=== PATIENT | male | born 1940 | race Caucasian/White ===

== ENCOUNTER 2020-11-27 03:56 | Inpatient (IN) | payer OTHER, MEDICARE ==
[~2020-11-27] VITALS: Ht 177.8 cm; Wt 70.7 kg
[~2020-11-27 03:56] MED LIST: CEFTRIAXONE1 GM IM
[2020-11-27 04:18] LABS: BASOPHILS ABSOLUTE AUTO 0.04 K/mm3 (0.00-0.23); BASOPHILS PERCENT AUTO 0 % (0-2); EOSINOPHILS PERCENT AUTO 0 % (0-6); Hematocrit 34.3 % (37.0-53.0); Hemoglobin 12.2 g/dL (13.5-17.5); IMMATURE GRAN ABSOLUTE AUTO 0.48 K/mm3 (0.00-0.10); IMMATURE GRAN PERCENT AUTO 2 % (0-1); LYMPHOCYTES PERCENT AUTO 2 % (21-46); MONOCYTES PERCENT AUTO 2 % (4-13); Mean Corpuscular HGB 32.6 pg (26.0-34.0); Mean Corpuscular HGB Conc 35.6 g/dL (31.5-36.5); Mean Corpuscular Volume 92 fL (80-100); Mean Platelet Volume 8.9 fL (9.1-12.4); NEUTROPHILS ABSOLUTE AUTO 18.78 K/mm3 (1.96-9.15); NEUTROPHILS PERCENT AUTO 94 % (41-73); NRBC ABSOLUTE 0.02 K/mm3 (0.00-0.02); NRBC Auto 0.1 /100 WBC (0.0-0.2); Platelet Count 117 K/mm3 (150-400); RDW Coefficient Variation 13.8 % (11.7-14.2); RDW Standard Deviation 45.6 fL (35.1-46.3); Red Blood Cell Count 3.74 M/mm3 (4.30-5.90)
[2020-11-27 04:19] LABS: Source, Urine Catheter
[2020-11-27 04:21] LABS: Appearance, Urine Hazy (Clear); Bilirubin, Urine Neg (Neg); Blood, Urine 5+ (Neg); Color, Urine Yellow (P-Yellow); Glucose Qualitative, Urine Neg (Neg); Ketones, Urine Neg (Neg); Leukocyte Esterase, Urine 3+ (Neg); Nitrite, Urine Neg (Neg); Protein, Urine 2+ (Neg); Urobilinogen, Urine NORM (Normal)
[2020-11-27 04:28] LABS: White Blood Cells, Urine TNTC /hpf (0-5)
[2020-11-27 04:29] LABS: Bacteria Many /hpf; Squamous Epithelial Cells Not Seen /hpf (Few)
[2020-11-27 04:36] LABS: BAND PERCENT MAN 18 % (0-8); BASOPHILS PERCENT MAN 0 % (0-2); EOSINOPHILS ABSOLUTE MAN 0.19 K/mm3 (0.00-0.68); EOSINOPHILS PERCENT MAN 1 % (0-6); LYMPHOCYTES ABSOLUTE MAN 0.39 K/mm3 (0.84-5.20); LYMPHOCYTES PERCENT MAN 2 % (21-46); METAMYELOCYTE ABSOLUTE MAN 1.39 K/mm3 (0.00-0.00); METAMYELOCYTE PERCENT MAN 7 % (0-0); MONOCYTES ABSOLUTE MAN 0.79 K/mm3 (0.16-1.47); MONOCYTES PERCENT MAN 4 % (4-13); NEUTROPHILS ABSOLUTE MAN 17.11 K/mm3 (1.96-9.15); SEG NEUTROPHILS PERCENT MAN 68 % (41-73); TOTAL CELLS COUNTED 100
[2020-11-27 04:39] LABS: Albumin, Blood 2.3 g/dL (3.4-5.0); Albumin/Globulin Ratio 0.7 (0.8-1.8); Bilirubin, Total 0.6 mg/dL (0.1-1.0); Bun/Creatinine Ratio 10.6 (12.0-20.0); Calcium, Blood 8.5 mg/dL (8.5-10.1); Creatinine, Blood 2.54 mg/dL (0.60-1.20); Globulin, Blood 3.1 g/dL (2.2-4.0); Potassium, Blood 4.3 mmol/L (3.5-5.5); Total Protein, Blood 5.4 g/dL (6.4-8.2); Troponin I 0.03 ng/mL (0.000-0.040)
[2020-11-27 05:02] LABS: Influenza A, PCR NEGATIVE (NEGATIVE); Influenza B, PCR NEGATIVE (NEGATIVE); Resp Syncytial Virus, PCR NEGATIVE (NEGATIVE); SARS-Cov-2 (COVID-19) PCR, MMC POSITIVE (NEGATIVE)
--- NOTE | 2020-11-27 06:52 | NUR ---
ADMIT PT ARRIVES TO ICU 9 VIA [facility] ATTENDS FULL OF STOOL. PT ANSWERS SIMPLE QUESTIONS BUT IS ALTERED. DR MESSINA CAME BEDSIDE FOR CENTRAL LINE PLACEMENT. INDWELLING YOUNG DC AND TEMP PROBE YOUNG. SCANT ZAFAR URINE RETURNED. SKIN DRY AND PALE. MULT PERIPHERAL IVS. PT CURRENTLY ON LEVO @ 12MCG/MIN UNTIL CENTRAL LINE CONFIRMED. ALB AND REMDES GIVEN. NS INF AT 125ML/HR. NO OBVIOUS WOUNDS. PT HYPOTENSIVE, AFIB ON MONITOR. ON 4L O2 PER CANNULA. PT CAME TO ER TODAY FROM [facility], STAFF AT FACILITY CONCERNED ABOUT HIS BP AND FEVER. WILL REPORT TO ONCOMING SHIFT.
[2020-11-27 07:01] LABS: Source, Urine Catheter
[2020-11-27 07:11] LABS: Blood, Urine 5+ (Neg); Glucose Qualitative, Urine Neg (Neg); Ketones, Urine Neg (Neg); Leukocyte Esterase, Urine 3+ (Neg); Nitrite, Urine Pos (Neg); Protein, Urine 3+ (Neg); Urobilinogen, Urine 1+ (Normal)
[2020-11-27 07:18] LABS: Appearance, Urine Cloudy (Clear); Bilirubin, Urine 1+ (Neg); Color, Urine Amber (P-Yellow)
[2020-11-27 07:21] LABS: Red Blood Cells, Urine TNTC /hpf (0-2); White Blood Cells, Urine 25-50 /hpf (0-5)
[2020-11-27 07:22] LABS: Bacteria Many /hpf; Squamous Epithelial Cells Rare /hpf (Few)
--- NOTE | 2020-11-27 07:59 | NUR ---
PT RECEIVED FROM NUBIA NARAYANAN. PT MINIMALLY RESPONSIVE, BP DROPPING, LEVOPHED MOVED TO CENTRAL LINE AND INCREASED INCREMENTALLY TO 20MCG. DR. MANCINI IN, ORDER FOR VASOPRESSIN. PT NO LONGER ANSWERING TO VOICE, SONOROUS RESPIRATIONS. PT WITH CLEAR LUNG SOUNDS ON THE LEFT, DIMINISHED ON THE RIGHT. DOPPLAR PULSES TO THE POSTERIOR TIBIALIS, UNABLE TO GET DORSAL PEDIALIS. PT STATES PAIN IN ABDOMEN. BOUNDING HEART TONES IN THE RUQ, QUIET REMAINDER OF ABDOMEN. YOUNG WITH DARK YELLOW RETURN, WITH SEDIMENT. ORALPHARYNX DRY.SKIN FLAKY. INCONTINENT OF DARK BROWN SEMI-FORMED STOOL, COCCYX RED, COVERED WITH CLOVER FOAM PAD.
--- NOTE | 2020-11-27 11:15 | NUR ---
PT IS NOW RESPONDING, ALERT AND ORIENTED. ORAL CARE DONE, PT ASSISTED WITH TURNING AND REPOSITION TO THE LEFT. HE IS ANSWERING ALL QUESTIONS APPROPRIATELY. HE UNDERSTANDS WHERE HE IS AND WHY HE IS HERE. HE ALSO UNDERSTANDS THAT HE TESTED POSITIVE FOR COVID HERE SO HE IS IN ISOLATION. BLOOD PRESSURE IMPROVED, VASOPRESSIN ON SB AND LEVO DOWN TO 15MCG/MIN. OXYGEN ON @ 2L/NC.
[2020-11-27] MEDS ORDERED: Amiodarone HCl200 MG PO (11:22)
[2020-11-27] MEDS ORDERED: FERSU300 PO (11:23)
[2020-11-27] MEDS ORDERED: TAMS.4ER PO (11:24)
[2020-11-27] MEDS ORDERED: MELA3 PO (11:25)
[2020-11-27] MEDS ORDERED: SENNA LAXATIVE8.6 MG PO (11:26)
[2020-11-27] MEDS ORDERED: SERT25 PO (11:27)
[2020-11-27] MEDS ORDERED: ATROVENT HFA12.9 GM INH (11:28)
[2020-11-27] MEDS ORDERED: ELIQUIS5 MG PO (11:28)
[2020-11-27] MEDS ORDERED: METO25ER PO (11:29)
[2020-11-27] MEDS ORDERED: HYDR1TAB94 PO (11:31)
[2020-11-27] MEDS ORDERED: ALBU90OI6 INH (11:32)
[2020-11-27] MEDS ORDERED: MIRALAX17 GM PO (11:32)
[2020-11-27] MEDS ORDERED: Pyridium100 MG PO (11:33)
[2020-11-27] MEDS ORDERED: ACET325 PO (11:34)
--- NOTE | 2020-11-27 13:52 | NUR ---
PT CONTINUES TO SLEEP WHILE RN OUT OF ROOM. PT AWAKENS WITH TOUCH AND VOICE, STATES HE DOESN'T SLEEP WELL. UNDERSTOOD THAT BOTH HIS SON AND DAUGHTER HAVE CALLED TO SPEAK WITH HIM. HE AGREES TO WAIT TO SPEAK WITH THEM. LEVO @ 9MCG/ VASOPRESSIN ON SB.
--- NOTE | 2020-11-27 15:50 | NUR ---
SHANA IS MUCH MORE ALERT AND ORIENTED THAN THIS AM, HE IS ABLE TO CARRY ON A CONVERSATION WITH ME. HE WAS TELLING ME ABOUT HIS TIME WORKING FOR THE [employer] IN [facility] AND HOW MUCH HE DOESN'T LIKE THAT CITY. WE DID FIND OUT FROM THE FACILITY,[facility],THAT HE RECEIVED THE 1ST DOSE OF THE VACCINE ON September, HE THEN TESTED + FOR COVID-19 ON . HE IS TO START OVER WHEN HE GETS BACK. SHANA ALSO IS TELLING ME THAT HIS NECK IS BOTHERING HIM REALLY BADLY, THAT HE WAS GETTING PAIN MEDS 2X/DAY AT THE FACILITY. WE WERE DISCUSSING IT, THE ORDERS CAME THROUGH FOR HIS "HOME" MEDICATIONS AND I GAVE HIM ONE OF HIS NORCO TABLETS. HE IS CURRENTLY COUGHING AND PRODUCING THICK WHITE SPUTUM RETURN. HE WILL NOT SWALLOW IT WHEN I AM IN THE ROOM WITH HIM BUT WILL SWALLOW IT WHEN I AM NOT.
--- NOTE | 2020-11-27 17:36 | NUR ---
JOHN HAS MAINTAINED HIS BLOOD PRESSURE FOR THE LAST HOUR WITH HIS PRESSORS ON STANDBY. HE CONTINUES TO REST. HE HAD SAID HE "JUST DOESN'T FEEL WELL" WHEN WE WERE CHATTING. HE HAS HAD 2L OF LACTATED RINGERS, HIS NS @125ML HAS FINISHED. HE HAD 750ML OUT OF HIS YOUNG. HE TOOK WATER PO AND HIS PAIN PILL FOR HIS NECK. HE HAS TOLERATED ORAL CARE AND SUCTIONING WHEN HE COUGHS, PRODUCTIVE OF WHITE THICK RETURN. PT HAS BEEN TURNED WITH PILLOWS ASSISTING HIS POSITIONING. IV'S PERIPHERAL X4, SALINE LOCK. CENTRAL LINE REMAINS INTACT AND PATENT FROM THIS MORNING.
--- NOTE | 2020-11-27 19:00 | NUR ---
ASSUMED CARE ASSUMED CARE OF PATIENT. RESTING QUIETLY WHEN UNDISTURBED. ROUSES EASILY TO VERBAL STIMULI. ORIENTED AND COOPERATIVE. SLOW VERBAL RESPONSE NOTED. VOICE IS WEAK. MOVES ALL EXTREMITIES WEAKLY. FOLLOWS COMMANDS. CONTINUES WITH C/O NECK PAIN- REPOSITIONED FOR COMFORT. 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 BP STABLE- LEVOPHED AND VASOPRESSIN REMAIN OFF. YOUNG PATENT AND DRAINING DARK YELLOW URINE. AFEBRILE. SEE ADMIT ASSESSMEMT FOR FULL ASSESSMENT.
[2020-11-28 04:11] LABS: BASOPHILS PERCENT AUTO 0 % (0-2); Hematocrit 27.9 % (37.0-53.0); Hemoglobin 9.9 g/dL (13.5-17.5); LYMPHOCYTES ABSOLUTE AUTO 0.73 K/mm3 (0.84-5.20); LYMPHOCYTES PERCENT AUTO 2 % (21-46); MONOCYTES ABSOLUTE AUTO 1.03 K/mm3 (0.16-1.47); MONOCYTES PERCENT AUTO 3 % (4-13); Mean Corpuscular HGB 31.9 pg (26.0-34.0); Mean Corpuscular HGB Conc 35.5 g/dL (31.5-36.5); Mean Corpuscular Volume 90 fL (80-100); Mean Platelet Volume 9.3 fL (9.1-12.4); Platelet Count 94 K/mm3 (150-400); RDW Coefficient Variation 14.1 % (11.7-14.2); RDW Standard Deviation 45.8 fL (35.1-46.3); White Blood Cell Count 31.93 K/mm3 (4.00-11.30)
[2020-11-28 04:17] LABS: EOSINOPHILS PERCENT AUTO 0 % (0-6); IMMATURE GRAN ABSOLUTE AUTO 4.35 K/mm3 (0.00-0.10); IMMATURE GRAN PERCENT AUTO 14 % (0-1); NEUTROPHILS ABSOLUTE AUTO 25.72 K/mm3 (1.96-9.15); NEUTROPHILS PERCENT AUTO 81 % (41-73)
[2020-11-28 04:28] LABS: Alanine Aminotransfer (ALT/SGP 25 U/L (12-78); Albumin, Blood 2.3 g/dL (3.4-5.0); Albumin/Globulin Ratio 0.8 (0.8-1.8); Alk Phos 69 U/L (50-136); Anion Gap 7 mmol/L (6-16); Aspartate Aminotrans (AST/SGOT 33 U/L (12-37); Bilirubin, Total 0.4 mg/dL (0.1-1.0); Blood Urea Nitrogen 22 mg/dL (8-24); Bun/Creatinine Ratio 25.9 (12.0-20.0); CO2, Blood 23 mmol/L (21-32); Calcium, Blood 8.2 mg/dL (8.5-10.1); Chloride, Blood 107 mmol/L (98-108); Creatinine, Blood 0.85 mg/dL (0.60-1.20); Globulin, Blood 2.8 g/dL (2.2-4.0); Glomerular Filtration Rate >60 (60-); Glucose, Blood 93 mg/dL (70-99); Potassium, Blood 4.5 mmol/L (3.5-5.5); Sodium, Blood 137 mmol/L (136-145); Total Protein, Blood 5.1 g/dL (6.4-8.2)
[2020-11-28 04:32] LABS: BAND PERCENT MAN 15 % (0-8); BASOPHILS PERCENT MAN 0 % (0-2); EOSINOPHILS PERCENT MAN 0 % (0-6); LYMPHOCYTES ABSOLUTE MAN 0.63 K/mm3 (0.84-5.20); LYMPHOCYTES PERCENT MAN 2 % (21-46); METAMYELOCYTE ABSOLUTE MAN 0.95 K/mm3 (0.00-0.00); METAMYELOCYTE PERCENT MAN 3 % (0-0); MONOCYTES PERCENT MAN 0 % (4-13); NEUTROPHILS ABSOLUTE MAN 30.33 K/mm3 (1.96-9.15); SEG NEUTROPHILS PERCENT MAN 80 % (41-73); TOTAL CELLS COUNTED 100
--- NOTE | 2020-11-28 06:35 | NUR ---
SHIFT SUMMARY NO ACUTE CHANGES DURING NOC. SLEPT INTERMITTENTLY T/O NOC. ROUSES TO STIMULI. ORIENTED AND COOPERATIVE. MOVES EXTREMITIES WEAKLY. IS ABLE TO ASSIST WITH REPOSITIONING. CONTINUES TO C/O NECK PAIN- MEDICATED WITH NORCO 5/325MG PO X 2 DOSES WITH SOME RELIEF. LEVOPHED RESTARTED AT 2350 TO KEEP MAP >65- NOW INFUSING AT 2MCG/MIN. RA SATS STABLE. POOR PO INTAKE- ONLY TAKING SIPS OF WATER WITH MEDS. C/O POOR APPETITE. YOUNG PATENT AND DRAINING DARK YELLOW URINE. MEPILEX TO COCCYX- PT STATES HEALING PRESSURE SORE. RIGHT IJ PATENT. REMAINS IN DROPLET ISOLATION FOR COVID-19. WILL REPORT TO ONCOMING RN WHEN AVAILABLE.
--- NOTE | 2020-11-28 11:31 | NUR ---
CARE ASSUMED OF PT AT 0700 THIS AM. PT AWAKE IN BED WATCHING TV. PT DENIES C/O PAIN, DENIES SOB. PT STATES HE FEELS BETTER THAN HE DID YESTERDAY. PT HAS FLAT AFFECT, APPEARS DEPRESSED. STATED THAT HE DIDNT THINK HE WOULD EVER BE ABLE TO WALK AGAIN. PT WAS TEARFUL AND CONCERNED THAT HE WOULDNT MAKE IT OUT OF THE HOSPITAL, PT CONSOLED. PT STATES HE DOES NOT FEEL LIKE EATING OR DRINKING AND DOES NOT WANT TO GET OOB TO CHAIR. PT ABLE TO SWALLOW PILLS THIS AM W SIPS OF WATER W/O ANY DIFFICULTY. PT DID NOT HAVE MAIN. FLUIDS RUNNING THIS AM. LEVOPHED GTT WAS AT 2MCG AND TURNED OFF AT 0800. BP REMAINS SATBLE. DR MANCINI CALLED FOR LOW U/O OF ONLY 20CC FROM 0500;DARK ZAFAR. NS STARTED AT 100CC/HR. ZOSYN AND VANCO STARTED. PT'S DAUGHTER TIFFANY GIVEN UPDATE W PT'S PERMISSION.
--- NOTE | 2020-11-28 13:53 | NUR ---
PT CONVERTED TO AFIB W RATE 110-130 AROUND 1130. BP STABLE, LEVOPHED REMAINS OFF. U/O IMPROVED AFTER NS AT 100CC STARTED. DR DOWNS CALLED AND UPDATED. LOPRESSOR IV PRN ORDERED, NS INCREASED 10 150CC/HR. VICODIN 5MG GIVEN FOR HEADACHE/NECK PAIN 02/21. PT REPOSITIONED AND HAS HEATING PAD. PASTORAL CARE AT BEDSIDE.
--- NOTE | 2020-11-28 16:52 | NUR ---
PT DECLINED, TURN, FOOD, WATER, BATH. WATER AT BEDSIDE. PT STATES HE MIGHT TAKE A BED BATH TOMORROW. PT STATES HE MIGHT EAT SOME CEREAL IN AM. WILL MAKE REQUEST TO KITCHEN. U/O MUCH IMPROVED AFTER FLUIDS STARTED. 350CC U/O THIS SHIFT.
--- NOTE | 2020-11-28 18:43 | NUR ---
Spiritual care note: Mr. Hernandez was quite talkative and appeared to appreciate being heard and affirmed. However, he only spoke about his many losses and breakbreaks throughout his life. I was unable to steer him towards anything positive. His speech was monotone and he appeared very weak. Mr. Hernandez seems chronically dissapointed, and although he seemed to enjoy companionship/conversation, he was just as sullen and tearful after our lengthy conversation. He decline prayer, saying, "I'm not spiritism." [employer] services will remain available.
--- NOTE | 2020-11-28 18:45 | NUR ---
LOPRESSOR GIVEN ONCE THIS SHIFT FOR AFIB RVR W RATE 130'S. LOPRESSOR 5MG DID NOT LOWER RATE SIGNIFICANTLY. BP HAS BEEN TRENDING DOWNWARD SINCE THIS AFTERNOON, MAP REMAINS >65. PT MAY REQUIRE LOW DOSE LEVOPHED THIS EVENING.
--- NOTE | 2020-11-28 19:00 | NUR ---
ASSUMED CARE NOTE: ASSUMED CARE OF PT AT 1900, RECEVIED REPORT FROM CHEO DELACRUZ. PT IS ALERT AND ORIENTEDX3, ABLE TO COMMUNICATE NEEDS. PT IS ON RA EITH SPO2 ABOVE 90% NO RESP DISTRESS NOTED, RR 20. PT STS HE IS HAVING A PRODUCTIVE COUGH, THIN WHITE SECRETIONS. PT IN SR WITH HR IN THE 70'S. SOFT BP NOTED, MAP ABOVE 65. YOUNG PATENT DRAINING TO GRAVITY. HEEL PROTECTORS APPLIED, MEPILEX ON COCCYX INTACT. PT C/O KNEE AND NECK PAIN, PAIN MEDS WILL BE GIVEN PER EMAR.
--- NOTE | 2020-11-28 19:15 | NUR ---
PT CONVERTED TO SINUS RHTHYM NEAR END OF SHIFT.
--- NOTE | 2020-11-29 00:10 | NUR ---
PT DESATURATED TO 78 % THEN CAME BACK UP TO 90% WITHIN A FEW SECOUNDS. PT WAS SLEEPING, AND SNORING. PT PLACED ON 2L OF 02 VIA NC, SPO2 AT 97% WILL KEEP 2L ON PATINET WHILE HE IS SLEEPING
[2020-11-29 03:55] LABS: Hematocrit 26.4 % (37.0-53.0); Hemoglobin 9.1 g/dL (13.5-17.5); Mean Corpuscular HGB 31.8 pg (26.0-34.0); Mean Corpuscular HGB Conc 34.5 g/dL (31.5-36.5); Mean Corpuscular Volume 92 fL (80-100); Mean Platelet Volume 9.2 fL (9.1-12.4); Platelet Count 94 K/mm3 (150-400); RDW Coefficient Variation 14.6 % (11.7-14.2); RDW Standard Deviation 49.2 fL (35.1-46.3); Red Blood Cell Count 2.86 M/mm3 (4.30-5.90)
[2020-11-29 04:10] LABS: Anion Gap 6 mmol/L (6-16); Blood Urea Nitrogen 23 mg/dL (8-24); Bun/Creatinine Ratio 35.5 (12.0-20.0); CO2, Blood 23 mmol/L (21-32); Calcium, Blood 7.7 mg/dL (8.5-10.1); Chloride, Blood 113 mmol/L (98-108); Creatinine, Blood 0.65 mg/dL (0.60-1.20); Glomerular Filtration Rate >60 (60-); Glucose, Blood 60 mg/dL (70-99); Potassium, Blood 3.6 mmol/L (3.5-5.5); Sodium, Blood 142 mmol/L (136-145)
[2020-11-29 04:14] LABS: BAND PERCENT MAN 13 % (0-8); BASOPHILS PERCENT MAN 0 % (0-2); EOSINOPHILS ABSOLUTE MAN 0.24 K/mm3 (0.00-0.68); EOSINOPHILS PERCENT MAN 1 % (0-6); LYMPHOCYTES ABSOLUTE MAN 0.24 K/mm3 (0.84-5.20); LYMPHOCYTES PERCENT MAN 1 % (21-46); MONOCYTES ABSOLUTE MAN 0.98 K/mm3 (0.16-1.47); MONOCYTES PERCENT MAN 4 % (4-13); NEUTROPHILS ABSOLUTE MAN 23.21 K/mm3 (1.96-9.15); SEG NEUTROPHILS PERCENT MAN 81 % (41-73); TOTAL CELLS COUNTED 100
--- NOTE | 2020-11-29 04:48 | NUR ---
CALLED REGARDING LOW BLOOD GLUCOSE OF 60. ORDERS GIVEN.
--- NOTE | 2020-11-29 06:04 | NUR ---
SHIFT SUMMARY: PT CONTINUES TO BE ON 2L OF 02 VIA NC WHILE SLEEPING WITH SPO2 MAINTAINING ABOVE 90% WHEN PT IS AWAKENED , HE WAKES UP A CONFUSED, HOWEVER IS ABLE TO BE REORIENTED. PT HAS BEEN IN NSR WITH HR IN THE 70-80'S. BP STABLE T/O SHIFT, MAP ABOVE 65. PT HAS BEEN C/O BILAT KNEE PAIN, NEEDS TO BE REPOSITIONED OFTEN, WHICH ALLEVIATES PAIN. PT DID NOT HAVE A BM THIS SHIFT. YOUNG DRAINING ZAFAR COLOR URINE. PT RECEVIED 1/2 AMP OF D50% FOR LOW BLOOD SUGAR OF 60. PT HAS BEEN USING CALL LIGHT APPROPRIATLY. WILL CONTINUE TO MONITOR PT UNTIL REPORT IS GIVEN TO ONCOMING SHIFT.
--- NOTE | 2020-11-29 08:35 | NUR ---
CARE OF PT ASSUMED THIS AM AT 0700. PT AWAKE AND ALERT. PT STATES HE FEELS BETTER TODAY THAN YESTERDAY. PT APPEARS TO HAVE SLIGHTLY IMPROVED MOOD. PT W POOR APPETITE, WILLING TO EAT CEREAL THIS AM. NUTRITION CONSULT PLACED TO HELP FIND FOODS THAT HE MIGHT EAT. DR MANCINI IN THIS AM, FULL UPDATE GIVEN. PT'S HEART RATE STABLE; SINUS RHTHYM. BP STABLE W SBP >110. GOOD URINE OUTPUT, 925CC EMPTIED THIS AM FROM YOUNG. PT IS FROM [place]. HE WAS IN A CARE FACILITY THERE W HIS DAUGHTER. PT EXPLAINS HE WAS "BLACKLISTED" FROM CARE FACILITIES IN [place] AND [place] BECAUSE HE GOT INTO AN ARGUMENT/ALTERCATION W STAFF ABOUT HIS DAUGHTERS CARE. PT'S GOAL IS TO BE AT THE SAME CARE FACILITY HIS DAUGHTER (ROSIO HOWARD [place]). POSSIBLE CHANGE OF STATUS THIS AM PT IS RESPONDING WELL TO ANTIBIOTICS AND IS STABLE THIS AM.
--- NOTE | 2020-11-29 11:07 | NUR ---
PT NOW MEDICAL FLOOR STATUS W TELE. PT'S DAUGHTER GIVEN UPDATE W PT'S PERMISSION, PHONE CALL THEN TRANSFERED INTO ROOM. DIETARY AT BEDSIDE TO DISCUSS FOODS HE MIGHT EAT.
--- NOTE | 2020-11-29 14:43 | NUR ---
PT TESTED NEG FOR COVID AND IS OUT OF ISOLATION. BEDBATH GIVEN. PHYSICAL THERAPY AT BEDSIDE TO EVALUATE PT. PT STATED HE HAD DIFFICULT TIME SWALLOWING WHOLE FOODS, WAS ABLE TO SWALLOW LIQUIDS FINE. WILL NOTIFY MD AND ASK FOR A SWALLOW EVAL.
--- NOTE | 2020-11-29 17:35 | NUR ---
SHIFT SUMMARY- PT IS A/O, PLESANT AND COOPERATIVE. HE ARRIVED TO THE UNIT THIS AFTERNOON. SETTELED INTO HIS ROOM CALL LIGHT IS DARSHANA TAVAREZ. HE WAS PROVIDED WATER, NO OTHER NEEDS AT THIS TIME.
--- NOTE | 2020-11-30 05:14 | NUR ---
SHIFT SUMMARY: VSS. AFEB. AAOX3. 02 91-92% ON RA. LSCTA W/ DIM BASES. INFREQUENT NON-PRODUCTIVE COUGH. REMAINS IN BED. F/C PATENT AND DRAINING CONCENTRATED URINE. MAINTENANCE IV FLUIDS INFUSING. IV ABT ORDERED. NO ACUTE OVERNIGHT EVENTS. WCTM.
[2020-11-30 06:38] LABS: BASOPHILS ABSOLUTE AUTO 0.04 K/mm3 (0.00-0.23); BASOPHILS PERCENT AUTO 0 % (0-2); Hematocrit 28.1 % (37.0-53.0); Hemoglobin 9.7 g/dL (13.5-17.5); LYMPHOCYTES ABSOLUTE AUTO 0.76 K/mm3 (0.84-5.20); LYMPHOCYTES PERCENT AUTO 5 % (21-46); MONOCYTES ABSOLUTE AUTO 0.48 K/mm3 (0.16-1.47); MONOCYTES PERCENT AUTO 3 % (4-13); Mean Corpuscular HGB 32.1 pg (26.0-34.0); Mean Corpuscular HGB Conc 34.5 g/dL (31.5-36.5); Mean Corpuscular Volume 93 fL (80-100); Mean Platelet Volume 8.9 fL (9.1-12.4); Platelet Count 101 K/mm3 (150-400); RDW Coefficient Variation 14.6 % (11.7-14.2); RDW Standard Deviation 49.4 fL (35.1-46.3); Red Blood Cell Count 3.02 M/mm3 (4.30-5.90); White Blood Cell Count 14.35 K/mm3 (4.00-11.30)
[2020-11-30 06:42] LABS: EOSINOPHILS ABSOLUTE AUTO 0.15 K/mm3 (0.00-0.68); EOSINOPHILS PERCENT AUTO 1 % (0-6); IMMATURE GRAN PERCENT AUTO 1 % (0-1); NEUTROPHILS ABSOLUTE AUTO 12.82 K/mm3 (1.96-9.15); NEUTROPHILS PERCENT AUTO 89 % (41-73)
[2020-11-30 08:34] LABS: Vancomycin, Trough 8.5 ug/mL (5.0-10.0)
--- NOTE | 2020-11-30 16:36 | NUR ---
SHIFT SUMMARY- PT IS A/O, PLESANT AND COOPERTATIVE. HE SPOKE WITH HIS DAUGHTER ON THE PHONE THIS AFTERNOON. HE IS RECIEVING IV ABX. HE SLEPT FOR MUCH OF THIS SHIFT. HIS YOUNG WAS REMOVED TODAY AT 1630 HAS NOT VOIDED OF YET. HIS BED IS IN THE LOW POSITION AND CALL LIGHT IS WITIN REACH.
--- NOTE | 2020-11-30 20:08 | NUR ---
PER MD MANCINI VO: INSERT YOUNG CATH AND NOTIFY MACHINE TOOL MECHANIC PROVIDER 1 HOUR POST INSERTION WITH UDATE
--- NOTE | 2020-11-30 20:37 | NUR ---
16 YOUNG CATH INSERTED WITH UROJECT, PT TOLERATED WELL, 900MLS OUT. PT IS NOW RESTING COMFORTABLE, WILL BE NOTIFIED.
[2020-12-01 05:03] LABS: BASOPHILS ABSOLUTE AUTO 0.01 K/mm3 (0.00-0.23); BASOPHILS PERCENT AUTO 0 % (0-2); EOSINOPHILS ABSOLUTE AUTO 0.09 K/mm3 (0.00-0.68); EOSINOPHILS PERCENT AUTO 1 % (0-6); Hematocrit 29.5 % (37.0-53.0); Hemoglobin 10.3 g/dL (13.5-17.5); IMMATURE GRAN ABSOLUTE AUTO 0.21 K/mm3 (0.00-0.10); IMMATURE GRAN PERCENT AUTO 3 % (0-1); LYMPHOCYTES ABSOLUTE AUTO 0.68 K/mm3 (0.84-5.20); LYMPHOCYTES PERCENT AUTO 8 % (21-46); MONOCYTES ABSOLUTE AUTO 0.59 K/mm3 (0.16-1.47); MONOCYTES PERCENT AUTO 7 % (4-13); Mean Corpuscular HGB 31.3 pg (26.0-34.0); Mean Corpuscular HGB Conc 34.9 g/dL (31.5-36.5); Mean Corpuscular Volume 90 fL (80-100); Mean Platelet Volume 9.3 fL (9.1-12.4); NEUTROPHILS ABSOLUTE AUTO 6.74 K/mm3 (1.96-9.15); NEUTROPHILS PERCENT AUTO 81 % (41-73); Platelet Count 102 K/mm3 (150-400); RDW Coefficient Variation 14.1 % (11.7-14.2); RDW Standard Deviation 45.6 fL (35.1-46.3); Red Blood Cell Count 3.29 M/mm3 (4.30-5.90); White Blood Cell Count 8.32 K/mm3 (4.00-11.30)
[2020-12-01 05:25] LABS: Anion Gap 7 mmol/L (6-16); Blood Urea Nitrogen 7 mg/dL (8-24); Bun/Creatinine Ratio 15.6 (12.0-20.0); CO2, Blood 25 mmol/L (21-32); Calcium, Blood 7.5 mg/dL (8.5-10.1); Chloride, Blood 111 mmol/L (98-108); Creatinine, Blood 0.45 mg/dL (0.60-1.20); Glomerular Filtration Rate >60 (60-); Glucose, Blood 84 mg/dL (70-99); Sodium, Blood 143 mmol/L (136-145)
--- NOTE | 2020-12-01 06:19 | NUR ---
PT IS ALERT, [place], YOUNG CATH DCD YESTERDAY, PT WAS UNABLE TO URINATE AND SWELLING DEVELOPED ON SIDE OF PENIS, PER MD MANCINI ORDER; YOUNG WAS REINSERTED AND UROGRAM ORDERED IN AM. PT IS BEDBOUND. TELE MONITOR.
--- NOTE | 2020-12-01 18:05 | NUR ---
SHIFT SUMMARY PT SLEEPING SOUNDLY AT START OF SHIFT, DURING SHIFT REPORT. PT WOKE AFTER SEVERAL ATTEMPTS AT CALLING HIS NAME. PT WENT RIGHT BACK TO SLEEP AFTER REPORT AND HAD TO BE WOKE FOR CARE MOST OF THE DAY. PT SAID HE DIDN'T KNOW WHY HE WAS SO SLEEPY TODAY, EXCEPT THAT HE WAS CATCHING UP ON MISSED SLEEP FROM PREVIOUS DAYS. PT NOT EATING MUCH FOR ANY MEALS, EVEN THOUGH HE CHOSE THE MENU. PT WENT FOR UROGRAM THIS AM. DR VERDUZCO IN TO SEE PT THIS AM WELL. IVF'S D/C'D. PO K+ ORDERED AND GIVEN. NO C/O PAIN. YOUNG TO GRAVITY, PATENT AND DRAINING WELL VERY CL PALE YELLOW URINE. TALKED ON PHONE TO FAMILY SEVERAL TIMES. POSSIBLE D/C BACK TO ON THURSDAY. CALL LT IN REACH.
--- NOTE | 2020-12-02 06:09 | NUR ---
PT IS ALERT, FORGETFUL AT TIMES AND PLEASANT. TODAY IS PT BIRTHDAY. YOUNG CATH DRAINING YELLOW URINE, LOWER BODY EDEMA, PT IS BEDBOUND. PT TO F/U WITH UROLOGY FOR URINE RETENTION.
[2020-12-02 09:24] LABS: BASOPHILS ABSOLUTE AUTO 0.02 K/mm3 (0.00-0.23); BASOPHILS PERCENT AUTO 0 % (0-2); EOSINOPHILS ABSOLUTE AUTO 0.06 K/mm3 (0.00-0.68); EOSINOPHILS PERCENT AUTO 1 % (0-6); Hematocrit 30.4 % (37.0-53.0); Hemoglobin 10.9 g/dL (13.5-17.5); IMMATURE GRAN ABSOLUTE AUTO 0.15 K/mm3 (0.00-0.10); IMMATURE GRAN PERCENT AUTO 2 % (0-1); LYMPHOCYTES ABSOLUTE AUTO 0.72 K/mm3 (0.84-5.20); LYMPHOCYTES PERCENT AUTO 8 % (21-46); MONOCYTES ABSOLUTE AUTO 0.71 K/mm3 (0.16-1.47); MONOCYTES PERCENT AUTO 8 % (4-13); Mean Corpuscular HGB 32.2 pg (26.0-34.0); Mean Corpuscular HGB Conc 35.9 g/dL (31.5-36.5); Mean Corpuscular Volume 90 fL (80-100); Mean Platelet Volume 9.1 fL (9.1-12.4); NEUTROPHILS ABSOLUTE AUTO 7.25 K/mm3 (1.96-9.15); NEUTROPHILS PERCENT AUTO 81 % (41-73); Platelet Count 117 K/mm3 (150-400); RDW Coefficient Variation 13.8 % (11.7-14.2); Red Blood Cell Count 3.39 M/mm3 (4.30-5.90); White Blood Cell Count 8.91 K/mm3 (4.00-11.30)
[2020-12-02 09:40] LABS: Anion Gap 6 mmol/L (6-16); Blood Urea Nitrogen 4 mg/dL (8-24); Bun/Creatinine Ratio 7.8 (12.0-20.0); CO2, Blood 27 mmol/L (21-32); Chloride, Blood 108 mmol/L (98-108); Creatinine, Blood 0.52 mg/dL (0.60-1.20); Glomerular Filtration Rate >60 (60-); Glucose, Blood 90 mg/dL (70-99); Potassium, Blood 3.3 mmol/L (3.5-5.5); Sodium, Blood 141 mmol/L (136-145)
--- NOTE | 2020-12-02 16:44 | NUR ---
SHIFT SUMMARY PT AWAKE THIS AM DURING SHIFT REPORT AND REMAINED AWAKE MOST OF THE DAY TODAY. UNLIKE YESTERDAY, WHEN HE SLEPT MOST OF THE DAY. PT STILL NOT EATING MUCH. WILL DRINK HIS BANANA PROTIEN DRINK EACH MEAL AND SIPS OF ENSURE, BUT NOT MUCH ELSE. REPORTS GETTING FULL EASILY AND WON'T EAT ANYMORE ONCE FULL. PT C/O PAIN TO L FOOT THIS AM. SOME SWELLING NOTED ON LATERAL LEFT IN COMPARISON TO R FOOT. PT MEDICATED FOR C/O PAIN AND LATER REPORTED IT EFFECTIVE. PT HAS DENIED PAIN SINCE. SWELLING BUBBLE TO SIDE OF PENIS SLIGHTLY IMPROVED. YOUNG TO GRAVITY PATENT AND DRAINING WELL. DR MANCINI IN TO SEE PT AND DISCUSS PLAN OF CARE. PT TO F/U WITH UROLOGY OUTPT AFTER D/C. POSSIBLE D/C BACK TO [facility] TOMORROW. PT HAS BEEN PLEASANT AND CO-OP. DENIED FURTHER NEEDS AT THIS TIME. CALL LT IN REACH.
--- NOTE | 2020-12-03 06:29 | NUR ---
PT IS A/O, FORGETFUL AT TIMES AND PLEASANT. BEDBOUND, WITH LOWER BODY EDEMA, YOUNG CATH DRAINING. PT IS EXPECTED TO D/C TODAY WITH CATHETER TO CARE FACILITY. PT WAS AWAKE FOR MOST OF THE NIGHT.
[2020-12-03 08:08] LABS: BASOPHILS ABSOLUTE AUTO 0.02 K/mm3 (0.00-0.23); BASOPHILS PERCENT AUTO 0 % (0-2); EOSINOPHILS ABSOLUTE AUTO 0.13 K/mm3 (0.00-0.68); EOSINOPHILS PERCENT AUTO 1 % (0-6); Hemoglobin 10.4 g/dL (13.5-17.5); IMMATURE GRAN ABSOLUTE AUTO 0.15 K/mm3 (0.00-0.10); IMMATURE GRAN PERCENT AUTO 2 % (0-1); LYMPHOCYTES ABSOLUTE AUTO 0.81 K/mm3 (0.84-5.20); LYMPHOCYTES PERCENT AUTO 9 % (21-46); MONOCYTES ABSOLUTE AUTO 0.54 K/mm3 (0.16-1.47); MONOCYTES PERCENT AUTO 6 % (4-13); Mean Corpuscular HGB 31.7 pg (26.0-34.0); Mean Corpuscular HGB Conc 34.7 g/dL (31.5-36.5); Mean Corpuscular Volume 92 fL (80-100); NEUTROPHILS ABSOLUTE AUTO 7.73 K/mm3 (1.96-9.15); NEUTROPHILS PERCENT AUTO 82 % (41-73); Platelet Count 149 K/mm3 (150-400); RDW Coefficient Variation 13.9 % (11.7-14.2); RDW Standard Deviation 45.7 fL (35.1-46.3); Red Blood Cell Count 3.28 M/mm3 (4.30-5.90); White Blood Cell Count 9.38 K/mm3 (4.00-11.30)
[2020-12-03 08:22] LABS: Anion Gap 7 mmol/L (6-16); Blood Urea Nitrogen 7 mg/dL (8-24); Bun/Creatinine Ratio 13.8 (12.0-20.0); CO2, Blood 27 mmol/L (21-32); Calcium, Blood 8.1 mg/dL (8.5-10.1); Chloride, Blood 107 mmol/L (98-108); Creatinine, Blood 0.51 mg/dL (0.60-1.20); Glomerular Filtration Rate >60 (60-); Glucose, Blood 86 mg/dL (70-99); Potassium, Blood 3.8 mmol/L (3.5-5.5); Sodium, Blood 141 mmol/L (136-145)
--- NOTE | 2020-12-03 18:49 | NUR ---
SHIFT SUMMARY NO ACUTE CHANGES THIS SHIFT. PATIENT IS ALERT, ORIENTED AND ABLE TO MAKE NEEDS KNOWN. PATIENT HAS ONE MORE DAY OF IV ABX PER AND THEN WILL BE CLEARED FOR DISCHARGE. CARE MANAGEMENT IS WORKING ON PLAN FOR PLACEMENT VS RETURN TO SNF. WILL CONT TO MONITOR AND REPORT TO NOC RN.
--- NOTE | 2020-12-04 04:09 | NUR ---
SHIFT SUMMARY ADMITTED FOR UTI/SEPSIS. FULL CODE. IV ANTIBIOTICS ARE SCHEDULED. ORIGINALLY FROM [facility], DC PLAN IS UNCLEAR AT THIS TIME. HE WILL DC W/YOUNG IN PLACE. HE IS BEDBOUND/WHEELCHAIR BOUND AT BASELINE. HE IS ON ELIQUIS. HX OF COVID POSITIVE 20 DAYS AGO.
[2020-12-04 05:27] LABS: BASOPHILS ABSOLUTE AUTO 0.01 K/mm3 (0.00-0.23); BASOPHILS PERCENT AUTO 0 % (0-2); EOSINOPHILS ABSOLUTE AUTO 0.12 K/mm3 (0.00-0.68); EOSINOPHILS PERCENT AUTO 1 % (0-6); Hematocrit 29.1 % (37.0-53.0); IMMATURE GRAN ABSOLUTE AUTO 0.13 K/mm3 (0.00-0.10); IMMATURE GRAN PERCENT AUTO 1 % (0-1); LYMPHOCYTES ABSOLUTE AUTO 0.86 K/mm3 (0.84-5.20); LYMPHOCYTES PERCENT AUTO 9 % (21-46); MONOCYTES ABSOLUTE AUTO 0.42 K/mm3 (0.16-1.47); MONOCYTES PERCENT AUTO 4 % (4-13); Mean Corpuscular HGB 31.4 pg (26.0-34.0); Mean Corpuscular HGB Conc 34.4 g/dL (31.5-36.5); Mean Corpuscular Volume 92 fL (80-100); Mean Platelet Volume 9.1 fL (9.1-12.4); NEUTROPHILS ABSOLUTE AUTO 8.07 K/mm3 (1.96-9.15); NEUTROPHILS PERCENT AUTO 84 % (41-73); Platelet Count 173 K/mm3 (150-400); RDW Standard Deviation 46.3 fL (35.1-46.3); Red Blood Cell Count 3.18 M/mm3 (4.30-5.90); White Blood Cell Count 9.61 K/mm3 (4.00-11.30)
[2020-12-04 05:42] LABS: Anion Gap 5 mmol/L (6-16); Blood Urea Nitrogen 11 mg/dL (8-24); Bun/Creatinine Ratio 18.9 (12.0-20.0); CO2, Blood 28 mmol/L (21-32); Calcium, Blood 8.1 mg/dL (8.5-10.1); Chloride, Blood 107 mmol/L (98-108); Creatinine, Blood 0.58 mg/dL (0.60-1.20); Glomerular Filtration Rate >60 (60-); Glucose, Blood 120 mg/dL (70-99); Potassium, Blood 3.6 mmol/L (3.5-5.5); Sodium, Blood 140 mmol/L (136-145)
--- NOTE | 2020-12-04 17:14 | NUR ---
SHIFT SUMMARY PT AxOx4. PLEASANT AND COOPERATIVE WITH CARE. PT WORKED WITH PHYSICAL AND OCCUPATIONAL THERAPY TODAY. PT REPORTED NECK/SHOULDER PAIN TODAY. MEDICATED PER EMAR. IV ABX DC'D TODAY. ACCORDING TO , PATIENT IS MEDICALLY STABLE FOR DC. ORAL AND MAXILLOFACIAL SURGERY WORKING ON PLACEMENT FOR PATIENT. VITALS REVIEWED. PT CURRENTLY RESTING IN BED WITH CALL LIGHT IN REACH. DENIES ANY NEEDS AT THIS TIME.
--- NOTE | 2020-12-05 04:36 | NUR ---
SHIFT SUMMARY ADMITTED FOR UROSEPSIS. FULL CODE. PLAN IS FOR DC TO SNF. PT IS NOW WORKING WITH PHYSICAL AND OCCUPATIONAL THERAPY. HE WISHES TO DC TO [facility] IN [place], THEN GO ON TO ASSISTED LIVING FACILITY FROM THERE. CARE MANAGEMENT IS ASSISTING WITH THIS CASE. HE WILL DC WITH YOUNG IN PLACE. HE HAS BEEN WEAK AND ON BEDREST SINCE ADMIT. HE IS WHEELCHAIR BOUND AT BASELINE. NO NEW CONCERNS THIS SHIFT
[2020-12-05 08:31] LABS: Anion Gap 5 mmol/L (6-16); Blood Urea Nitrogen 12 mg/dL (8-24); Bun/Creatinine Ratio 22.3 (12.0-20.0); CO2, Blood 29 mmol/L (21-32); Calcium, Blood 8.5 mg/dL (8.5-10.1); Chloride, Blood 106 mmol/L (98-108); Creatinine, Blood 0.54 mg/dL (0.60-1.20); Glomerular Filtration Rate >60 (60-); Glucose, Blood 93 mg/dL (70-99); Potassium, Blood 3.8 mmol/L (3.5-5.5); Sodium, Blood 140 mmol/L (136-145)
--- NOTE | 2020-12-05 16:20 | NUR ---
SHIFT SUMMARY PATIENT MEDICATED X1 FOR PAIN, DENIES NAUSEA AND SHORTNESS OF BREATH. PATIENT WORKED WITH PT AND OT. UP IN CHAIR 2 ASSIST WITH SLIDER BOARD AND GAIT BELT. APPETITE IMPROVING. NAPPING AND WATCHING TV MOST OF SHIFT. [facility] WILL ASSESS PATIENT FOR PLACEMENT SOME TIME NEXT WEEK IF PATIENT HAS NOT BEEN DISCHARGED, PER A DR. GIFFORD, WHO CALLED FROM [facility].
--- NOTE | 2020-12-06 04:46 | NUR ---
SHIFT SUMMARY ADMITTED FOR UROSEPSIS. FULL CODE. PLAN IS FOR PLACEMENT, FOLLOWED BY EVENTUAL [facility]IV[facility]. FULL CODE. YOUNG IS CHRONIC AND WILL STAY IN PLACE AFTER DC. PHYSICAL & OCCUPATIONAL THERAPY WORKING WITH THIS PT. HE IS A&O X3 - FORGETFUL. ON ELLIQUIS. PREVIOUSLY FROM [facility]. COVID + 22 DAYS AGO. HE HAS BEEN SEVERELY WEAK AND WAS MOSTLY BEDREST SINCE ADMIT. NO NEW CONCERNS THIS SHIFT
[2020-12-06] MEDS ORDERED: VISBIOME 112.51 EACH PO (09:59)
--- NOTE | 2020-12-06 12:25 | NUR ---
PATIENT DISCHARGE: PATIENT DISCHARGE/ XFR TO SNF ([facility] IN [place] ) THIS SHIFT. MEDICATION RECONCILIATION COMPLETED; MED LIST PROVIDED IN D/C PACKET; HARD SCRIPT PROVIDED FOR CONTROLLED SUBSTANCE. REPORT CALLED TO NUBIA BARBOSA, AT [facility]. PATIENT DEPARTED MEDICAL FLOOR VIA [facility] WITH WHEELCHAIR AT 1122. PATIENT DEPARTED [facility] VIA WHEELCHAIR VAN.
== END 2020-12-06 12:24 | DRG 871 ==
LOC: ER 03:56 → ICUW 05:31 → MEDS 11-29 15:57
PROVIDERS: Emergency Medicine; Family Medicine; Internal Medicine; ADMIT Internal Medicine
PROC: XW033E5 Introduction of Remdesivir Anti-infective into Peripheral Vein, Percutaneous Approach, New Technology Group 5 (ICD-10-PCS; principal; 2020-11-27)
PROC: 3E0333Z Introduction of Anti-inflammatory into Peripheral Vein, Percutaneous Approach (ICD-10-PCS; 2020-11-27)
PROC: 3E043XZ Introduction of Vasopressor into Central Vein, Percutaneous Approach (ICD-10-PCS; 2020-11-27)
PROC: 3E02340 Introduction of Influenza Vaccine into Muscle, Percutaneous Approach (ICD-10-PCS; 2020-11-27)
PROC: 02HV33Z Insertion of Infusion Device into Superior Vena Cava, Percutaneous Approach (ICD-10-PCS; 2020-11-27)
DX: A41.81 Sepsis due to Enterococcus (principal); R65.21 Severe sepsis with septic shock; U07.1 COVID-19; G93.41 Metabolic encephalopathy; J96.00 Acute respiratory failure, unspecified whether with hypoxia or hypercapnia; N39.0 Urinary tract infection, site not specified; I48.20 Chronic atrial fibrillation, unspecified; E87.2 Acidosis; A41.59 Other Gram-negative sepsis; E86.0 Dehydration; N18.30 Chronic kidney disease, stage 3 unspecified; F03.90 Unspecified dementia, unspecified severity, without behavioral disturbance, psychotic disturbance, mood disturbance, and anxiety; I50.9 Heart failure, unspecified; F41.9 Anxiety disorder, unspecified; F32.9 Major depressive disorder, single episode, unspecified; Z23 Encounter for immunization; E11.65 Type 2 diabetes mellitus with hyperglycemia; R33.8 Other retention of urine; N40.1 Benign prostatic hyperplasia with lower urinary tract symptoms; E87.6 Hypokalemia
CPT/HCPCS: 0241U; 36415; 36556; 51702; 71045; 74178; 80048; 80053; 80202; 81001; 82330; 82947; 83605; 83880; 84484; 85025; 87040; 87077; 87086; 87186; 87426; 92610; 93005; 93010; 94760; 96361; 96365; 96367; 97110; 97162; 97166; 97168; 97530; 99285-25; A9270; C9803; J0290; J0696; J1100; J1650; J2543; J3370; J7030; J7050; J7060; J7120; P9046; Q9967